=== PATIENT | female | born 1970 | race Caucasian/White ===

== ENCOUNTER → 2018-02-15 | Outpatient (CLI) | payer OTHER ==
--- NOTE | 2018-02-15 14:58 | RADIOLOGY IMAGING REPORT ---
FACILITY: [facility] PATIENT NAME: SIMI AGARWAL : [id number] MR: [id number] V: [id number] EXAM DATE: [id number] ORDERING PHYSICIAN: ALYSHA PINTO TECHNOLOGIST: Marguerite Malave PROCEDURE:BILATERAL DIGITAL SCREENING MAMMOGRAM WITH CAD ASSISTED INTERPRETATION & 3D TOMOSYNTHESIS Views obtained: Bilateral 2D full field CC & MLO and corresponding 3D Tomography. COMPARISON:07/04/2017, 01/04/2017, 12/22/2015. INDICATIONS:screening Family history of breast carcinoma in mother and paternal aunt, and ovarian carcinoma in a maternal aunt. Personal history of bilateral benign surgical excisional biopsies. TISSUE DENSITY: Heterogeneously dense. The dense breast tissue may obscure small masses. FINDINGS: There is no mammographic finding suspicious for malignancy, and no significant changes when compared to prior mammograms. DIAGNOSTIC CATEGORY 1--NEGATIVE. RECOMMENDATIONS: ANNUAL BILATERAL SCREENING MAMMOGRAM. IMPRESSION: BIRADS 1: Negative. Dictated by: Harika Santamaria M.D. on 02/15/2018 at 12:41 Transcribed by: FERNANDA on 02/15/2018 at 13:40 Approved by: Harika Santamaria M.D. on 02/15/2018 at 14:58 [facility]
--- NOTE | 2018-02-15 14:58 | RADIOLOGY IMAGING REPORT ---
FACILITY: [facility] PATIENT NAME: SIMI AGARWAL : [id number] MR: [id number] V: [id number] EXAM DATE: [id number] ORDERING PHYSICIAN: ALYSHA PINTO TECHNOLOGIST: Bailey Kruger PROCEDURE:US LEFT BREAST COMPARISON:Left breast Ultrasound 07/04/2017, Left breast diagnostic mammogram 07/04/2017. INDICATIONS:6 mo f/u small hypoechoic structures by prior Ultrasound. FINDINGS: Area scanned: Left breast from 9-1 o'clock. The palpable lump in the superior breast demonstrated by the patient correlates to a thick band of benign appearing fibroglandular tissue. At 11:30 o'clock, 8cm from the nipple, is a small hypoechoic 3mm structure that has not changed. Two hypoechoic structures at 1 o'clock, 8cm from the nipple, are stable. A few other 2-3 mm scattered hypoechoic structures are seen at 10, 11, and 12 o'clock. DIAGNOSTIC CATEGORY 2--BENIGN FINDING. RECOMMENDATIONS: BILATERAL ANNUAL SCREENING MAMMOGRAM IS DUE TODAY. I discussed the results on recommendations with the patient following this study. IMPRESSION: BIRADS 2: Benign finding Dictated by: Harika Santamaria M.D. on 02/15/2018 at 11:10 Transcribed by: FIX on 02/15/2018 at 13:54 Approved by: Harika Santamaria M.D. on 02/15/2018 at 14:57 [facility]
== END ==
LOC: MAMO 02:08
PROVIDERS: ATTEND Obstetrics & Gynecology
DX: Z12.31 Encounter for screening mammogram for malignant neoplasm of breast (principal); N63.22 Unspecified lump in the left breast, upper inner quadrant; Z80.3 Family history of malignant neoplasm of breast
CPT/HCPCS: 77063; 77067